=== PATIENT | male | born 1975 | race Caucasian/White ===

== ENCOUNTER 2024-02-23 08:59 | Outpatient (OUT) | payer MEDICAID, SELFPAY ==
--- NOTE | 2024-02-23 09:00 | CA_ITS ---
Patient Name: MACHO CERVANTES MR#: [id number] : 1975 Exam Date: 02/23/2024 Ordering Doctor: DR. MEHREEN CÁRDENAS M.D. ECHOCARDIOGRAM REPORT PROCEDURE: CA ECHO DOPPLER COMPLETE INDICATIONS: Dyspnea on exertion, COPD, GERD, atrial fibrillation-ablation COMPARISON: None. DESCRIPTION: COMPLETE ECHOCARDIOGRAM Real-time transthoracic echocardiography with 2D, M-mode, spectral and color flow Doppler performed. QUALITY: Technical quality was good. LEFT VENTRICLE: Normal chamber size. Normal left ventricular wall thickness. LV EF: Global left ventricular systolic function is difficult to assess but appears preserved; visually estimated ejection fraction is 55%. Unable to assess regional wall motion abnormality; recommend contrast study for better delineation of endocardial borders. DIASTOLIC: Normal diastolic function. ATRIAL SEPTUM: Visually appears intact. LEFT ATRIUM: Normal chamber size. RIGHT ATRIUM: Normal chamber size. RIGHT VENTRICLE: Normal chamber size. Normal right ventricular systolic function. TRICUSPID VALVE: Normal mobility and thickness. No stenosis with trivial regurgitation. No evidence of pulmonary hypertension. RVSP 25 mmHg MITRAL VALVE: Normal mobility and thickness. No evidence of mitral valve stenosis. There is no mitral annular calcification. No mitral regurgitation. AORTIC VALVE: Normal trileaflet appearance. No visible sclerosis. Normal leaflet mobility. No evidence of aortic valve stenosis. No aortic regurgitation. AORTIC ROOT: Normal diameter and appearance. Ascending aorta is normal in size. PULMONIC VALVE: Normal thickness and mobility. No stenosis. No regurgitation. PERICARDIUM: Anterior free space; trivial effusion versus fat pad. IVC: Collapses with inspirations. CONCLUSION: 1. Global left ventricular systolic function is normal; visually estimated ejection fraction is 55% 2. Normal right ventricular size and systolic function 3. Normal diastolic function 4. No significant valvular abnormalities 5. Anterior free space; trivial effusion versus fat pad Adult Echocardiography Procedure Report Left Ventricle LVEDD (3.7 - 5.6 cm): 4.85 cm LVESD (2.2 - 4.0 cm): 3.30 cm LVIVS thickness (0.6 - 1.2 cm): 0.75 cm LVPW thickness (0.5 - 1.0 cm): 0.93 cm e': 0.13 m/s E - e': 3.26 LVOT Max Gradient: 1.26 mm[Hg] LVOT Area (cm2): 0.56 m/s Peak Velocity (LVOT): 0.56 m/s Mean Velocity (LVOT): 0.37 m/s LVOT Diameter 2.59 cm Left Atrium LA Volume Index (2D A2C): 18.58 ml/m2 Left Atrium Systolic Dimension: 2.86 cm Mitral Valve MV E to A Ratio: 1.48 Mitral Valve A-Wave Peak Velocity: 0.29 m/s Mitral Valve E-Wave Peak Velocity: 0.42 m/s Right Ventricle Aorta AO Root Diam: 2.76 cm Ascending Ao Diam: 3.47 cm Aortic Valve AoV Area (Peak Alex): 3.74 cm2, 3.74 cm2 AoV Area (VTI): 3.22 cm2, 3.22 cm2 Peak Velocity(Antegrade Flow): 0.79 m/s Peak Gradient(Antegrade Flow): 2.50 mm[Hg] Mean Velocity(Antegrade Flow): 0.52 m/s Mean Gradient(Antegrade Flow): 1.23 mm[Hg] Velocity Time Integral: 17.28 cm Tricuspid Valve Peak Velocity (Regurgitant Flow): 2.34 m/s Pulmonic Valve Mean Gradient: 0.75 mm[Hg] Mean Velocity: 0.41 m/s Peak Velocity: 0.59 m/s, 0.61 m/s Peak Gradient: 1.48 mm[Hg], 1.38 mm[Hg] Right Atrium Right Atrium Systolic Pressure: 28.49 ml, 28.49 ml Dictated by: Akash Caicedo M.D. on 02/23/2024 at 15:18 Approved by: Akash Caicedo M.D. on 02/23/2024 at 15:21
== END 2024-02-23 09:00 | disposition home or self-care (01) ==
PROVIDERS: Visit Provider Internal Medicine Cardiovascular Disease
DX: R06.09 Other forms of dyspnea (principal)
CPT/HCPCS: 93306